=== PATIENT | female | born 1980 | race Caucasian/White ===

== ENCOUNTER 2024-06-08 09:23 | Emergency (ER) | payer OTHER, SELFPAY ==
[2024-06-08 09:40] VITALS: BP 120/80; PULSE 122; RESP 20; TEMP 36.8; O2SAT 99
[2024-06-08 11:44] LABS: Add Urine Microscopic? YES; Appearance Urine Cloudy (Clear); Bacteria Urine None Seen /hpf; Bilirubin Urine Negative (Negative); Blood Urine Negative (Negative); Budding Yeast Urine Present /hpf; Color Urine Yellow (Yellow); Glucose Urine UA Negative (Negative); Ketones Urine Negative (Negative); Leukocyte Esterase Ur 3+ LEU/UL (Negative); Need Manual Microscopic Reviewed; Nitrate Urine Positive (Negative); Non Pathogenic Casts 0-2; Protein Urine Trace mg/dL (Negative); RBC Urine 0-2 /hpf (0-2); Specific Grav Ur 1.015 (1.001-1.035); Squamous Epithelial Cell Urine None Seen /hpf (Few); Urobilinogen Urine 0.2 mg/dL (<2.0); WBC Urine 51-100 /hpf (0-3)
[2024-06-08 12:01] VITALS: BP 116/77; PULSE 71; RESP 18; TEMP 36.7; O2SAT 100
[2024-06-08 12:12] LABS: Pregnancy On Board Control Positive; Urine Pregnancy Test Negative
[2024-06-08 12:20] LABS: Basophils Percent Auto 0.2 % (0.2-1.2); Hematocrit 36.6 % (37.0-47.0); Immature Granulocyte Absolute 0.07 K/mm3 (0.00-0.031); Immature Granulocyte Percent A 0.5 % (0-0.5); Lymphocytes Absolute Auto 0.54 K/mm3 (0.9-3.2); Lymphocytes Percent Auto 3.7 % (18.3-44.2); Mean Corpuscular HGB Conc 35.5 g/dl (32-36); Mean Corpuscular Hemoglobin 31.2 pg (26-34); Mean Corpuscular Volume 87.8 fl (80-100); Mean Platelet Volume 9.7 fl (7.4-10.4); Monocytes Absolute Auto 0.7 K/mm3 (0.1-0.6); Monocytes Percent Auto 4.7 % (2.6-8.5); Neutrophils Absolute Auto 13.2 K/mm3 (1.3-6.7); Neutrophils Percent Auto 90.9 % (45.5-73.1); Platelet Count Result 165 k/mm3 (150-375); Red Blood Count 4.17 M/mm3 (4.2-5.4); Red Cell Distribution Width 12.3 % (11.5-14.5); White Blood Count 14.6 K/mm3 (4.5-10.0)
[2024-06-08] MEDS: SODIUM CHLORIDE 0.9% IV 1,000 ML 999 ML IV CONT (12:22)
--- NOTE | 2024-06-08 12:37 | ED.FEMALEGU ---
HPI - Female Genitourinary General Chief complaint: Urogenital-Female Stated complaint: urinary sx Time Seen by Provider: 06/08/24 11:56 History of Present Illness HPI Narrative: 44-year-old female presenting to the emergency department for evaluation for a suspected urinary tract infection. Patient reports she has had increased urinary pain urinary pressure and foul smell to her urine for the course of the last week. Patient was initially complaining of some right flank pain which she had attributed to a muscle strain. Related Data Home Medications Medication Instructions Recorded Confirmed fluticasone propionate 50 1 spray intranasal DAILY 02/15/24 02/15/24 mcg/actuation nasal spray,suspension (Flonase Allergy Relief) ketotifen fumarate 0.025 % (0.035 1 drp EACH EYE BID 02/15/24 02/15/24 %) eye drops Allergies Allergy/AdvReac Type Severity Reaction Status Date / Time No Known Allergies Allergy Verified 06/08/24 12:02 Review of Systems Review of Systems: All systems reviewed & are unremarkable except as noted in HPI and below [facility] Surgical History Surgical History (Updated 04/04/22 @ 14:26 by Estefania Carrillo [facility]) Hx of appendectomy 2007 Family History Family History (Updated 02/15/24 @ 14:14 by Opal Sanchez) Father Heart disease Mother Heart disease Sibling Cerebrovascular accident Grandparent Breast cancer Social History Social History (Updated 02/15/24 @ 14:16 by Opal Sanchez) Smoking status: Never smoker Alcohol intake: never Substance use: never Do You Feel Safe in your Home?: Yes Lack of Transportation: YES Lack of Food: Never True Current Housing: I Have Housing Concerned About Future Housing: No Difficulty Paying Gas/Electric Bills: No Difficulty Paying for Meds: No Currently Unemployed: No Education: Associate Degree Difficulty w/ Childcare or Family Care: No Living arrangements: with family Exam Narrative: APPEARANCE: Well appearing, no pain, no distress, well-nourished. HEAD: normocephalic, atraumatic. EYES: PERRLA/EOMI, conjunctivae clear. NOSE: Normal no drainage EARS:TMS clear with good light reflex. THROAT: Pharynx clear, no exudate. NECK: Supple. No adenopathy, no masses. RESPIRATORY: Airway patent, respirations nonlabored. Clear to auscultation bilaterally, no rales, rhonchi, wheezing. CARDIOVASCULAR: Regular rate and rhythm without murmurs rubs or gallops. ABDOMINAL: No significant right CVA tenderness to palpation, mild suprapubic tenderness to palpation MUSCULOSKELETAL: Moves all extremities. Strength/ROM intact, No edema, No calf tenderness. NEURO: Alert. Cranial nerves II through XII intact. Grossly intact SKIN: Warm, dry. Normal Color Course Course Emergency Course: Patient felt improved with treatment and was started on antibiotics Vital Signs Vital signs: Vital Signs Temperature 98.3 F 06/08/24 09:40 Pulse Rate 122 H 06/08/24 09:40 Respiratory Rate 20 06/08/24 09:40 Blood Pressure 120/80 06/08/24 09:40 Pulse Oximetry 99 06/08/24 09:40 Oxygen Delivery Room Air 06/08/24 09:40 Temperature 98.1 F 06/08/24 12:01 Pulse Rate 71 06/08/24 12:01 Respiratory Rate 18 06/08/24 12:01 Blood Pressure 116/77 06/08/24 12:01 Pulse Oximetry 100 06/08/24 12:01 Oxygen Delivery Room Air 06/08/24 09:40 MDM - Female Genitourinary MDM Narrative Medical decision making narrative: 44-year-old female present to the emergency department for evaluation for urinary symptoms. Patient's urine is cloudy with positive nitrates positive leuk esterase and 51-100 white blood cells. Urine culture was ordered. Patient was started on Rocephin IV in the emergency department. Patient had no red blood cells in the urine so low concern for kidney stone. Patient has no prior history of kidney stones. Patient did have an elevated white blood cell count. Patient was started o
[2024-06-08 12:40] LABS: Alanine Aminotransferase 14 U/L (6-35); Albumin Level 4.1 g/dL (3.5-5.1); Alkaline Phosphatase 66 U/L (38-126); Anion Gap 12 mmol/L (4-12); Aspartate Amino Transferase 21 U/L (14-36); Bilirubin,Total 0.7 mg/dL (0.2-1.3); Blood Urea Nitrogen 13 mg/dL (7-17); Calcium 8.9 mg/dL (8.4-10.2); Carbon Dioxide 20 mmol/L (22-30); Chloride 101 mmol/L (98-107); Estimated CRCL calculation 84 ml/min; Estimated Glomerular Filt Rate > 60; Glucose 150 mg/dL (65-110); Potassium 3.8 mmol/L (3.4-5.0); Sodium 133 mmol/L (137-145)
[2024-06-08] MEDS: PHENAZOPYRIDINE HCL 100 MG TABLET 200 MG PO (13:11)
== END 2024-06-08 13:26 | disposition home or self-care (01) ==
PROVIDERS: Emergency Medicine; Emergency Provider Emergency Medicine; PCP Family Medicine
DX: N12 Tubulo-interstitial nephritis, not specified as acute or chronic (principal)
CPT/HCPCS: 36415; 80053; 81001; 81025; 85025; 87077; 87086; 87088; 87186; 96365; 99284; A9270; J0696; J7030

== ENCOUNTER 2024-07-03 14:41 | Outpatient (CLI) | payer OTHER, SELFPAY ==
--- NOTE | ~2024-07-03 | MM_ITS ---
EXAMINATION: MM screening [facility] w kristina HISTORY: Screening mammogram TECHNIQUE: Craniocaudal and mediolateral oblique 3-D tomosynthesis images were obtained and synthetic 2-D images were generated. CAD analysis was submitted and interpreted. COMPARISON: No prior mammogram is available for comparison at this institution. BREAST PARENCHYMAL COMPOSITION:Not Dense. There are scattered areas of fibroglandular density. FINDINGS: Benign lymph node present at the upper, outer, posterior left breast. No suspicious mass, c alcification, or architectural distortion are identified in either breast to suggest malignancy. Ther e has been no suspicious interval change. IMPRESSION: No mammographic evidence of malignancy. Recommend routine screening mammography in one year. BI-RADS Category 2: Benign finding(s). Reviewed, dictated and finalized at location .
== END 2024-07-03 14:42 | disposition home or self-care (01) ==
LOC: MICIMG 14:43
PROVIDERS: PCP Family Medicine; Visit Provider Family Medicine
DX: Z12.31 Encounter for screening mammogram for malignant neoplasm of breast (principal)
CPT/HCPCS: 77063; 77067

== ENCOUNTER 2024-08-09 08:23 | Emergency (ER) | payer OTHER, SELFPAY ==
--- NOTE | ~2024-08-09 | XR_ITS ---
XR cervical spine 4-5V 08/09/2024 09:06 Indication: Neck pain. Limited range of motion. Procedure: 5 views cervical spine including flexion/extension views Comparison: No prior studies for comparison. Findings: Vertebral body heights are maintained. No significant disc narrowing. No significant altera tion of alignment with flexion/extension. No prevertebral soft tissue swelling. Lateral masses are al igned. Odontoid process is normal. Lung apices are normal. No fracture or traumatic malalignment. Impression: 1: No significant abnormality of the cervical spine. Reviewed, dictated and finalized at location B. Impression: 1: No significant abnormality of the cervical spine.
[2024-08-09 08:39] VITALS: BP 119/100; PULSE 96; RESP 16; TEMP 36.6; O2SAT 100
--- NOTE | 2024-08-09 08:44 | ED.NECK ---
HPI - Neck Pain/Injury General Chief Complaint: Neck Pain/Injury Stated Complaint: Neck Pain Time Seen by Provider: 08/09/24 08:44 Source: patient, RN notes reviewed and old records reviewed Mode of arrival: ambulatory Limitations: no limitations History of Present Illness HPI Narrative: 34-year-old female to [facility] with complaint neck pain with limited ROM since Monday That is worse with any ROM. Patient reports Monday morning and a.m. while sitting on couch she started to experience aching her neck that eventually developed into significant pain and stiffness. Patient denies known injury, prior pertinent history, numbness, tingling, radiation of pain, weakness, headache, allergies. Patient has attempted to treat symptoms at home with ibuprofen and naproxen with mild relief. Patient states that she did not medicate this morning so that we could evaluate her without medication. Patient resting in exam room in no acute distress. Patient is clearly uncomfortable with stiffness and limited range of motion. Currently rating pain 2/10 while sitting still. patient reports that she has an appointment scheduled with her primary care provider on Monday. However, patient was uncertain she could tolerate the pain over the weekend. Related Data Home Medications Medication Instructions Recorded Confirmed fluticasone propionate 50 1 spray intranasal DAILY 02/15/24 08/09/24 mcg/actuation nasal spray,suspension (Flonase Allergy Relief) progesterone micronized 100 mg 100 mg PO DAILY 08/09/24 08/09/24 capsule Allergies Allergy/AdvReac Type Severity Reaction Status Date / Time No Known Allergies Allergy Verified 08/09/24 08:36 Review of Systems Review of Systems: All systems reviewed & are unremarkable except as noted in HPI and below Constitutional: Constitutional: Reports no additional constitutional complaints Eyes: Eyes: Reports no additional eye complaints ENT: Reports system reviewed and no additional complaints, except as documented Cardiovascular: Cardiovascular: Reports no additional cardiovascular complaints, Denies chest pain and Denies dyspnea Respiratory: Respiratory: Reports no additional respiratory complaints, Denies cough and Denies dyspnea Musculoskeletal: Musculoskeletal: Reports as per HPI, Denies back pain, Denies muscle weakness, Reports neck pain, Denies numbness, Denies radiating pain into limb, Reports stiffness and Denies tingling Neurologic: Reports system reviewed and no additional complaints, except as documented Psychiatric: Psychiatric: Reports no additional psychiatric complaints PMFSH Surgical History Surgical History Hx of appendectomy 2008 Family History Family History Father Heart disease Mother Heart disease Sibling Cerebrovascular accident Grandparent Breast cancer Social History Social History Smoking status: Never smoker Alcohol intake: never Substance use: never Do You Feel Safe in your Home?: Yes Lack of Transportation: YES Lack of Food: Never True Current Housing: I Have Housing Concerned About Future Housing: No Difficulty Paying Gas/Electric Bills: No Difficulty Paying for Meds: No Currently Unemployed: No Education: Associate Degree Difficulty w/ Childcare or Family Care: No Living arrangements: with family Comments At the time of my signature, I reviewed and agree with the nursing past medical, surgical, social, and family history. There is no relevant family history pertinent to the patient complaint. Exam Const: General: cooperative, healthy appearing, no acute distress, well developed, alert, uncomfortable, well groomed and well nourished Nutritional Appearance: well nourished Orientation/consciousness: patient oriented x3 Li
[2024-08-09] MEDS: KETOROLAC (*BKC) 60 MG/2 ML VIAL IM (09:08)
== END 2024-08-09 09:37 | disposition home or self-care (01) ==
PROVIDERS: Emergency Provider Nurse Practitioner Family; PCP Family Medicine
DX: M54.2 Cervicalgia (principal); Z79.899 Other long term (current) drug therapy
CPT/HCPCS: 72050; 96372; 99213; G0463; J1885

== ENCOUNTER 2025-07-29 12:22 | Outpatient (CLI) | payer OTHER, SELFPAY ==
--- NOTE | ~2025-07-29 | MM_ITS ---
EXAMINATION: MM screening [facility] w kristian HISTORY: Screening TECHNIQUE: Craniocaudal and mediolateral oblique 3-D tomosynthesis images were obtained and synthetic 2-D images were generated. CAD analysis was submitted and interpreted. COMPARISON: 07/03/2024 BREAST PARENCHYMAL COMPOSITION: There are scattered areas of fibroglandular density. FINDINGS: There is no evidence of suspicious mass, calcification, or architectural distortion to suggest malignancy in either breast. IMPRESSION: 1. No mammographic evidence of malignancy. 2. Recommend routine screening mammography in one year. BI-RADS Category 1: Negative Reviewed, dictated and finalized at location B.
== END 2025-07-29 12:23 | disposition home or self-care (01) ==
LOC: MICIMG 12:23
PROVIDERS: PCP Family Medicine; Visit Provider Family Medicine
DX: Z12.31 Encounter for screening mammogram for malignant neoplasm of breast (principal)
CPT/HCPCS: 77063; 77067